=== PATIENT | female | born 2000 | race Caucasian/White ===

== ENCOUNTER 2025-03-03 00:49 | Emergency (ER) | payer MEDICAID ==
[~2025-03-03] VITALS: Ht 162.6 cm; Wt 86.0 kg
[2025-03-03 01:20] VITALS: O2SAT 98
[2025-03-03 01:29] LABS: BASOPHILS % 0.3 % (0.0-2.0); EOSINOPHILS % 4.7 % (0.0-5.0); HEMATOCRIT. 42.7 % (36.0-48.0); HEMOGLOBIN. 14.1 g/dL (12.0-16.0); LYMPHOCYTES % 11.7 % (20.0-50.0); MEAN PLATELET VOLUME 9.2 fl (7.4-10.4); MONOCYTES % 7.0 % (2.0-8.0); NEUTROPHILS % 76.3 % (40.0-76.0); PLATELET 283 x1000/uL (130-400); RED BLOOD CELL COUNT 5.23 mill/uL (4.2-5.4); RED CELL DISTRIBUTION WIDTH 13.7 % (11.6-14.6)
[2025-03-03 01:36] LABS: CREATININE 0.8 mg/dL (0.6-1.0); UREA NITROGEN BLOOD 8 mg/dL (9-23)
[2025-03-03 01:38] LABS: ASPARTATE AMINOTRANSFERASE 146 IU/L (<34); BILIRUBIN DIRECT 0.2 mg/dL (<=3.0); BILIRUBIN TOTAL 0.7 mg/dL (0.1-1.0); PROTEIN TOTAL 7.7 g/dL (6.0-8.3)
[2025-03-03] MEDS: ONDANSETRON HCL 4MG TABLET PO ONE (01:48)
[2025-03-03] MEDS: ACETAMINOPHEN 325MG TABLET PO ONE (01:48)
[2025-03-03 02:43] LABS: CLARITY URINE CLEAR (CLEAR); COLOR URINE DARK YELLOW (YELLOW); GLUCOSE URINE NEGATIVE (NEGATIVE); KETONES URINE 2+ (NEGATIVE); LEUKOCYTE ESTERASE URINE NEGATIVE (NEGATIVE); NITRITE URINE NEGATIVE (NEGATIVE); OCCULT BLOOD URINE NEGATIVE (NEGATIVE); PH URINE 5.5 (4.5-8.0); PROTEIN URINE 1+ (NEGATIVE); SPECIFIC GRAVITY URINE 1.038 (1.005-1.030); UROBILINOGEN URINE 1.0 E.U./dL (0.2-1.0)
[2025-03-03 02:51] LABS: HCG SCREEN NEGATIVE
[2025-03-03 02:58] LABS: TROPONIN I HIGH SENSITIVITY < 4 ng/L (3.0-34)
[2025-03-03] MEDS: KETOROLAC 15MG/ML VIAL IM ONE (03:28)
[2025-03-03 03:33] LABS: BACTERIA URINE TRACE; MUCUS URINE 2+ /lpf (< = 2+); RBC URINE 0-2 /hpf (0-2); SQUAMOUS EPITHELIAL CELL URINE 1+ /lpf (RARE/1+)
[2025-03-03] MEDS ORDERED: MAG-55 MT (04:16)
[2025-03-03 04:30] VITALS: BP 106/71; PULSE 73; RESP 18; TEMP 36.7; O2SAT 98
== END 2025-03-03 04:33 | disposition home or self-care (01) ==
LOC: ER 00:49
DX: K29.70 Gastritis, unspecified, without bleeding (principal); R07.89 Other chest pain; R19.7 Diarrhea, unspecified; J45.909 Unspecified asthma, uncomplicated
CPT/HCPCS: 99285; 76705; 71045; 80076; 80048; 81003; 84703; 83690; 85025; 84484; 36415; 93005; 96372; J1885; Q0162